=== PATIENT | female | born 1950 | race Caucasian/White ===

== ENCOUNTER → 2020-08-06 13:23 | Outpatient (CLI) | payer MEDICARE, OTHER, SELFPAY ==
[2020-08-06 14:30] LABS: INR 0.9 (0.9-1.3); Prothrombin Time 10.6 SECONDS (10.1-12.7)
[2020-08-06 14:37] LABS: Add Manual Diff / Slide Review NO; Basophils Absolute Auto 0 /uL (0-100); Basophils Percent Auto 0.6 % (0-2); Eosinophils Absolute Auto 100 /uL (0-450); Eosinophils Percent Auto 1.1 % (2-4); Hematocrit 34.7 % (36-46); Hemoglobin 11.8 g/dL (12.0-16.0); Lymphocytes Absolute Auto 1800 /uL (1100-4500); Lymphocytes Percent Auto 31.4 % (25-40); Mean Corpuscular HGB Conc 34.1 % (30-36); Mean Corpuscular Volume 88.1 fL (80-100); Monocytes Absolute Auto 500 /uL (0-900); Monocytes Percent Auto 8.5 % (3-14); Neutrophils Absolute Auto 3400 /uL (1500-7000); Neutrophils Percent Auto 58.4 % (50-75); Platelet Count 336 X10^3/uL (150-400); Red Blood Cell Count 3.94 X10^6/uL (4.0-5.2); Red Cell Distribution Width 13.7 % (11.6-14.8); White Blood Cell Count 5.8 X10^3/uL (4.5-11.0)
[2020-08-06 14:53] LABS: Alanine Aminotransferase 14 IU/L (<35); Albumin 3.7 g/dL (3.5-5.0); Albumin Globulin Ratio 1.4 (1.0-2.8); Alkaline Phosphatase 42 U/L (38-126); Aspartate Aminotransferase 20 IU/L (14-36); BUN Creatinine Ratio 14.5 (6-22); Bilirubin Total 0.3 mg/dL (0.2-1.3); Blood Urea Nitrogen 10 mg/dL (7-17); Calcium 10.5 mg/dL (8.4-10.2); Carbon Dioxide 35 mmol/L (22-32); Chloride 101 mmol/L (98-107); Estimated Glomerular Filt Rate > 60.0 mL/min (>60); Globulin 2.7 g/dL (1.7-4.1); Glucose 85 mg/dL (80-110); HEMOLYSIS < 15 (0-50); Potassium 4.1 mmol/L (3.4-5.1); Sodium 136 mmol/L (137-145); Total Protein 6.4 g/dL (6.3-8.2)
== END ==
PROVIDERS: PCP Physician Assistant Medical; Referring Provider Internal Medicine Gastroenterology; Visit Provider Internal Medicine Gastroenterology
DX: K74.60 Unspecified cirrhosis of liver (principal)
CPT/HCPCS: 36415; 80053; 85025; 85610

== ENCOUNTER 2020-12-11 08:19 | Outpatient (CLI) | payer MEDICARE, OTHER, SELFPAY ==
[2020-12-11] VITALS (12 sets, daily range): BP systolic 116–133; BP diastolic 59–79; PULSE 77–86; RESP 12–18; TEMP 36.4–37.1; O2SAT 95–100; BMI 26.5
--- NOTE | 2020-12-11 | PATH_ITS ---
[facility] Accession Number: [id number] . 01 Material submitted: . liver - CIRRHOSIS LIVER NON TARGETED (L LATERAL SEGMENT LIVER NON-TARGETED BIOPSY) . 02 Diagnosis: Cirrhosis Liver Non-targeted (Left Lateral Segment Liver Non-targeted Biopsy), Needle Core Biopsy: Minute, disrupted fragments of hepatic parenchyma, some possibly from a subcapsular location. Fragments of benign fibroadipose tissue and fibrinous debris. Please see comment. MRV 12/18/2020 1637 Local . 02 Comment: Histologic sections demonstrate a fragmented hepatic architecture; one tissue fragment appears to derive from a subcapsular location. One partial, poorly visualized portal tract is identified; there is no evidence of portal fibrosis, inflammation, or bile ductular proliferation. Hepatic plates appear to be of normal thickness. There is no evidence of lobular inflammation or steatosis. No granulomas, abnormal pigment deposition, or intracytoplasmic inclusions are identified. . Trichrome, iron, and PASD stains were provided and used to help evaluate the histologic features; controls were appropirately positive. . 02 Electronically signed: . Sheyla Stovall MD, Pathologist NPI- [id number] . 01 Gross description: . CIRRHOSIS LIVER NON TARGETED (L LATERAL SEGMENT LIVER NON-TARGETED BIOPSY): Received in formalin are multiple fragment(s) of anna, soft tissue measuring 0.1 x 0.1 x 0.1 cm to 0.4 x 0.1 x 0.1 cm submitted entirely in 1 cassette(s) /FELIX 12/14/2020 2226 Local . 02 Pathologist provided ICD-10: K74.60 . 02 CPT . 234359, 101641, 558145, 123500 Performed at: [address], [facility] [place] [id number] MD Herson Fernandes MD Phone: [phone] Performed at: 02 [facility] [address] [place] [id number] MD Nimco Katz MD Phone: [phone]
[2020-12-11 09:21] LABS: Add Manual Diff / Slide Review NO; Basophils Absolute Auto 0 /uL (0-100); Basophils Percent Auto 0.7 % (0-2); Eosinophils Absolute Auto 200 /uL (0-450); Eosinophils Percent Auto 2.9 % (2-4); Hematocrit 35.9 % (36-46); Hemoglobin 11.8 g/dL (12.0-16.0); Lymphocytes Absolute Auto 2200 /uL (1100-4500); Lymphocytes Percent Auto 33.9 % (25-40); Mean Corpuscular HGB Conc 32.7 % (30-36); Mean Corpuscular Volume 88.7 fL (80-100); Monocytes Absolute Auto 600 /uL (0-900); Monocytes Percent Auto 9.5 % (3-14); Neutrophils Absolute Auto 3400 /uL (1500-7000); Platelet Count 277 X10^3/uL (150-400); Red Blood Cell Count 4.05 X10^6/uL (4.0-5.2); Red Cell Distribution Width 14.5 % (11.6-14.8); White Blood Cell Count 6.4 X10^3/uL (4.5-11.0)
[2020-12-11 09:30] LABS: INR 0.9 (0.9-1.3); Prothrombin Time 9.7 SECONDS (10.1-12.7)
[2020-12-11 09:33] LABS: PTT Partial Thromboplastin Tim 31 SECONDS (26.4-36.2)
[2020-12-11 09:57] LABS: BUN Creatinine Ratio 16.7 (6-22); Blood Urea Nitrogen 12 mg/dL (7-17); Estimated Glomerular Filt Rate > 60.0 mL/min (>60)
--- NOTE | 2020-12-11 11:10 | DI.CT.S_ITS ---
PROCEDURE: CT BIOPSY LIVER Sedation analgesia was not utilized. INDICATIONS: CIRRHOSIS TECHNIQUE: The indications, alternatives, benefits, risks, and possible complications of the procedure were communicated to the patient. Informed written consent from the patient was obtained and placed in the chart. Continuous EKG and hemodynamic monitoring was started by trained personnel. The patient was brought to the CT suite and track and field coach spiral CT imaging was performed with localization grid. The appropriate site for percutaneous access to the biopsy target was marked, was prepped and draped sterilely, and was infused with local anaesthesia. Under CT guidance, a core biopsy trocar and needle set was advanced to the biopsy target, and specimen(s) were obtained. The trocar and needle were then removed, and the patient was sent for post-procedure monitoring. COMPARISON: Prior abdominal ultrasound 06/13/19. FINDINGS: Biopsy site: Left lateral hepatic segment, from left paramedian approach. Needle: 20 gauge biopsy needle with 19 gauge introducer trocar. Number of passes: 6 Complications: None. IMPRESSION: Successful CT-guided biopsy of left hepatic lobe for cirrhosis assessment by histology. A focal mass lesion was not targeted.. Dictated by: Bogdan Rojas M.D. on 12/11/2020 at 15:19 Approved by: Bogdan Rojas M.D. on 12/11/2020 at 15:20
--- NOTE | 2020-12-11 12:04 | SUR.PHASEII ---
Late entry: Pt arrived back from DI, laying flat with sand bag on upper abdomen. VSS and pt fed lunch. Site remains c/d/i.
--- NOTE | 2020-12-11 13:19 | SUR.PREOP ---
Pt off bedrest, sandbag removed, up to BR steady when up, back to bed, bandaid c/d/i. Pt w/o pain or discomfort. Lab called for hct to be drawn and report given to KIARA Khan
[2020-12-11 14:44] LABS: Hematocrit 35.3 % (36-46)
== END 2020-12-11 15:39 | disposition home or self-care (01) ==
LOC: OR 08:28 → LAB 01-21 09:20
PROVIDERS: Radiology Diagnostic Radiology; PCP Physician Assistant Medical; Referring Provider Student in an Organized Health Care Education/Training Program; Visit Provider Student in an Organized Health Care Education/Training Program
PROC: BF25ZZZ Computerized Tomography (CT Scan) of Liver (ICD-10-PCS; CPT 47000; principal; 2020-12-11 10:00)
DX: K74.60 Unspecified cirrhosis of liver (principal)
CPT/HCPCS: 36415; 47000; 77012; 82565; 84520; 85014; 85025; 85610; 85730; Q9967

== ENCOUNTER → 2021-02-11 10:41 | Outpatient (CLI) | payer MEDICARE, OTHER, SELFPAY | PROVIDERS: PCP Physician Assistant Medical; Referring Provider Specialist; Visit Provider Specialist | DX: R30.0 Dysuria (principal); N95.2 Postmenopausal atrophic vaginitis; R39.9 Unspecified symptoms and signs involving the genitourinary system; R31.29 Other microscopic hematuria | CPT/HCPCS: 51798; 81002; 87077; 87086; 87186; 99214 ==

== ENCOUNTER → 2021-03-25 13:44 | Outpatient (CLI) | payer MEDICARE, OTHER, SELFPAY | PROVIDERS: PCP Physician Assistant Medical; Visit Provider Specialist | DX: N39.0 Urinary tract infection, site not specified (principal) | CPT/HCPCS: 87086 ==

== ENCOUNTER → 2021-03-25 13:59 | Outpatient (CLI) | payer MEDICARE, OTHER, SELFPAY ==
[2021-03-25 15:14] LABS: BUN Creatinine Ratio 22.9 (6-22); Blood Urea Nitrogen 16 mg/dL (7-17); Calcium 10.4 mg/dL (8.4-10.2); Carbon Dioxide 31 mmol/L (22-32); Chloride 102 mmol/L (98-107); Estimated Glomerular Filt Rate > 60.0 mL/min (>60); Glucose 77 mg/dL (80-110); HEMOLYSIS < 15 (0-50); Potassium 4.6 mmol/L (3.4-5.1); Sodium 136 mmol/L (137-145)
== END ==
PROVIDERS: PCP Physician Assistant Medical; Referring Provider Specialist; Visit Provider Specialist
DX: R39.9 Unspecified symptoms and signs involving the genitourinary system (principal); N39.0 Urinary tract infection, site not specified; R31.29 Other microscopic hematuria; N95.2 Postmenopausal atrophic vaginitis; Z87.440 Personal history of urinary (tract) infections
CPT/HCPCS: 36415; 52000; 80048; 81002; 87077; 87086; 87186; 99214

== ENCOUNTER → 2021-03-26 09:22 | Outpatient (CLI) | payer MEDICARE, OTHER, SELFPAY ==
--- NOTE | 2021-03-26 09:24 | DI.CT.S_ITS ---
PROCEDURE: CT ABDOMEN PELVIS WO/W CON INDICATIONS: HEMATURIA TECHNIQUE: Optional 5 mm thick noncontrast images acquired from the diaphragm to the symphysis pubis. After the administration of intravenous contrast, 5 mm thick images acquired from the diaphragm to the symphysis pubis after a 10-minute delay. 2 mm thick coronal and sagittal reformats were then performed of the kidneys and ureters. For radiation dose reduction, the following was used: automated exposure control, adjustment of mA and/or kV according to patient size. COMPARISON: [facility], RG, CT ABDOMEN/PELVIS WITH CONTRAST, 01/01/2016, 14:00. FINDINGS: Image quality: Excellent. Lung bases: Lung bases are clear. Heart size is mildly enlarged. Urinary system: Both kidneys are normal size. There is a corticomedullary sub cm cyst in the upper pole of the left kidney. No suspicious solid masses. There are two granular, punctate calcifications in the lower pole right intrarenal collecting system and no other significant urinary calcifications. No hydronephrosis or hydroureter. Postcontrast, intrarenal collecting systems are normally opacified with contrast without filling defect. The opacified portions of the ureter are normal. The partially filled urinary bladder is normal without stones or suspicious wall thickening. Other solid organs: Liver is normal in size and enhancement. Gallbladder is normal . Biliary system is non dilated. Pancreas enhances normally. Spleen is normal in size and enhancement. No adrenal nodules. Peritoneum and bowel: Bowel loops demonstrate normal wall thickness and caliber. There is increased quantity of solid stool present in the proximal and transverse colon. Moderate diverticulosis is present in the distal descending and sigmoid colon. No acute inflammatory changes. No free fluid or air. Normal appendix. Nodes and vessels: No retroperitoneal or mesenteric adenopathy by size criteria. Aorta and inferior vena cava are normal in size. Abdominal wall: No ventral hernias. Pelvis: No pathologic free pelvic fluid. Retroverted uterus and left ovary appear normal. The right ovary is not well seen. No suspicious adnexal mass. No inguinal hernias or adenopathy. Bones: No suspicious bony lesions. No vertebral body compression fractures. Multilevel degenerative disc and endplate changes in the lumbar spine. IMPRESSION: 1. 2 punctate nonobstructing right lower pole intrarenal calcifications. 2. Partially filled urinary bladder demonstrates normal wall thickness. 3. Mild colonic obstipation. 4. Descending and sigmoid diverticulosis. Dictated by: Hayley Love M.D. on 03/26/2021 at 12:30 Approved by: Hayley Love M.D. on 03/26/2021 at 12:41
== END ==
PROVIDERS: PCP Physician Assistant Medical; Referring Provider Specialist; Visit Provider Specialist
DX: R31.29 Other microscopic hematuria (principal); N20.0 Calculus of kidney; K59.00 Constipation, unspecified; K57.30 Diverticulosis of large intestine without perforation or abscess without bleeding
CPT/HCPCS: 74178; Q9967

== ENCOUNTER → 2021-05-18 11:46 | Outpatient (CLI) | payer MEDICARE, OTHER, SELFPAY | PROVIDERS: PCP Physician Assistant Medical; Referring Provider Specialist; Visit Provider Specialist | DX: R30.0 Dysuria (principal); N95.2 Postmenopausal atrophic vaginitis; R39.9 Unspecified symptoms and signs involving the genitourinary system; N20.0 Calculus of kidney; Z87.440 Personal history of urinary (tract) infections | CPT/HCPCS: 81002; 87086; 99214 ==

== ENCOUNTER → 2022-05-18 09:46 | Outpatient (CLI) | payer MEDICARE, OTHER, SELFPAY | PROVIDERS: PCP Physician Assistant Medical; Visit Provider Specialist | DX: R31.29 Other microscopic hematuria (principal); N95.2 Postmenopausal atrophic vaginitis; R39.9 Unspecified symptoms and signs involving the genitourinary system; N20.0 Calculus of kidney; Z87.440 Personal history of urinary (tract) infections | CPT/HCPCS: 51798; 81002; 87086; 99214 ==